=== PATIENT | female | born 1980 | race Caucasian/White ===

== ENCOUNTER 2021-05-04 18:17 | Emergency (ER) | payer OTHER ==
[2021-05-04] MEDS ORDERED: NAPROSYN500 MG PO (20:44)
== END 2021-05-04 20:53 | disposition home or self-care (01) ==
LOC: ER1 18:17
DX: S43.101A Unspecified dislocation of right acromioclavicular joint, initial encounter (principal); S16.1XXA Strain of muscle, fascia and tendon at neck level, initial encounter; W19.XXXA Unspecified fall, initial encounter; Y92.009 Unspecified place in unspecified non-institutional (private) residence as the place of occurrence of the external cause
CPT/HCPCS: 72040; 73030; 99283